=== PATIENT | female | born 1960 | race Caucasian/White ===

== ENCOUNTER → 2016-06-05 | Outpatient (CLI) | payer OTHER ==
[~2016-06-05] MED LIST: BUPR-83
== END | disposition home or self-care (01) ==
LOC: C.PAPS 11:42
PROVIDERS: ATTEND Obstetrics & Gynecology
DX: Z01.419 Encounter for gynecological examination (general) (routine) without abnormal findings (principal)

== ENCOUNTER → 2017-07-20 | Outpatient (CLI) | payer BC ==
[~2017-07-20] MED LIST changes: +ASPCH81X PO; +BUPR100T5 PO; +HYDR25TA4 PO; +IRON PO; +OPTIRAY 320 IV PRN
[2017-07-20 10:22] LABS: ISTAT POTASSIUM 3.7 mEq/L (3.3-5.0); ISTAT SODIUM 138 mEq/L (135-144)
--- NOTE | 2017-07-20 10:45 | DIAGNOSTIC IMAGING REPORT ---
CT ABD/PELVIS COMBO CLINICAL HISTORY: R31.0 Gross hematuria AUTH#[id number] VALID 07/17/17 - 08/[id number] COMPARISON STUDY: None. TECHNIQUE: Unenhanced images were obtained through the abdomen and pelvis. The patient was injected with 50 cc Optiray 320. After 5 minute delay, the patient was reimaged in a dynamic helical fashion during the additional administration of 69 cc Optiray 320. A dose lowering technique was utilized adhering to the principles of ALARA. CT DOSE: 1744.90 mGycm FINDINGS: Lower chest: There are minor dependent atelectatic changes. Liver: The contrast-enhanced liver is normal in size, contour, and attenuation. There is no intrahepatic biliary ductal dilatation. The hepatic veins and portal veins are patent. Gallbladder: Cholelithiasis Spleen: The spleen is the upper limits of normal in size. No masses are visualized Pancreas: Unremarkable. Adrenal glands: There is minor adrenal gland thickening likely secondary to mild hyperplasia Kidneys: There is a 7 mm calculus at the level of the left ureteropelvic junction. There is mild secondary renal pelvic/proximal ureteral wall thickening. No additional calculi are visualized. There is no significant hydronephrosis. No solid there is a 6 mm upper pole left renal cyst. Renal masses are visualized. No collecting system lesions are visualized. No ureteral lesions are delineated. Bowel: There are no transition zones indicate bowel obstruction. No acute inflammatory changes are visualized. Peritoneum: There is no intraperitoneal free air or abdominal ascites. Vasculature: The abdominal aorta is normal in course and caliber. Adenopathy: None. Pelvic viscera: The bladder, and pelvic viscera are unremarkable. No bladder calculi are visualized. Skeletal structures: There is a grade 1 spondylolisthesis of L4 and L5. No destructive lesions are visualized IMPRESSION: 1. 7 mm calculus at the level the left ureteropelvic junction. There is mild secondary uroepithelial thickening. There is no significant hydronephrosis 2. 6 mm left renal cyst 3. No solid renal masses identified 4. Cholelithiasis Electronically signed by: Mamadou Aldana M.D. 07/20/2017 10:43 AM Dictated Date/Time: 07/20/2017 10:39 AM
== END | disposition home or self-care (01) ==
LOC: C.CTS 08:55
PROVIDERS: ATTEND Urology
DX: R31.0 Gross hematuria (principal); N28.1 Cyst of kidney, acquired; K80.20 Calculus of gallbladder without cholecystitis without obstruction

== ENCOUNTER → 2017-07-25 | Outpatient (CLI) | payer BC ==
[~2017-07-25] MED LIST changes: -OPTIRAY 320 IV PRN
--- NOTE | 2017-07-25 16:16 | DIAGNOSTIC IMAGING REPORT ---
TWO VIEW CHEST CLINICAL HISTORY: Preoperative examination. Nephrolithiasis. FINDINGS: PA and lateral chest radiographs are obtained. No prior studies are available for comparison at the time of dictation. The heart is top normal for projection. The mediastinal contour is within normal limits. The lungs and pleural spaces are clear. There is no pneumothorax. The skeletal structures are osteopenic. The bony thorax appears intact. A left proximal ureteral stone is seen in the upper abdomen. IMPRESSION: 1. No active disease in the chest. 2. A left proximal ureteral stone is seen in the upper abdomen. Electronically signed by: Giovanni Saavedra M.D. 07/25/2017 4:15 PM Dictated Date/Time: 07/25/2017 4:13 PM
[2017-07-25 16:45] LABS: BASO % 0.4 %; BASO ABS # 0.03 K/uL (0-0.2); EOS % 1.5 %; EOS ABS # 0.11 K/uL (0-0.5); HEMATOCRIT 39.9 % (37-47); HEMOGLOBIN 13.8 g/dL (12.0-16.0); IG# 0.01 K/uL (0.00-0.02); LYMPH % 26.1 %; MEAN CELL VOLUME 86.9 fL (80-100); MEAN CORPUSCULAR HEMOGLOBIN 30.1 pg (25-34); MEAN CORPUSCULAR HGB CONC 34.6 g/dl (32-36); MEAN PLATELET VOLUME 9.6 fL (7.4-10.4); MONO ABS # 0.58 K/uL (0.11-0.59); NEUT % 63.9 %; NEUT ABS # 4.65 K/uL (1.4-6.5); PLATELET COUNT 213 K/uL (130-400); RED CELL DISTRIBUTION WIDTH CV 13.5 % (11.5-14.5); RED CELL DISTRIBUTION WIDTH SD 42.8 fL (36.4-46.3); WHITE BLOOD COUNT 7.28 K/uL (4.8-10.8)
[2017-07-25 17:05] LABS: BLOOD UREA NITROGEN 14 mg/dl (7-18); CARBON DIOXIDE 30 mmol/L (21-32); CREATININE 0.79 mg/dl (0.60-1.20); POTASSIUM 3.4 mmol/L (3.5-5.1); SODIUM 136 mmol/L (136-145)
== END | disposition home or self-care (01) ==
LOC: C.CPL 15:44
PROVIDERS: ATTEND Nurse Practitioner Adult Health
DX: N20.1 Calculus of ureter (principal)

== ENCOUNTER → 2017-07-25 | Outpatient (CLI) | payer BC ==
--- NOTE | 2017-07-25 11:13 | DIAGNOSTIC IMAGING REPORT ---
KUB CLINICAL HISTORY: Calculus of kidney nephrocalcinosis COMPARISON STUDY: CT dated 07/20/2017 FINDINGS: 7 mm calcification in the left or vertebral line approximately at the level of the superior endplate of L3. This appears to be unchanged in position compared to the patient's prior CT study. Bowel pattern is nonobstructive. IMPRESSION: 7 mm calculus at the left ureteral pelvic junction unchanged in position compared to the patient's prior CT scan. The above report was generated using voice recognition software. It may contain grammatical, syntax or spelling errors. Electronically signed by: José Luis Dwyer M.D. 07/25/2017 11:12 AM Dictated Date/Time: 07/25/2017 11:08 AM
== END | disposition home or self-care (01) ==
LOC: C.RAD 10:53
PROVIDERS: ATTEND Urology
DX: N20.0 Calculus of kidney (principal)

== ENCOUNTER → 2017-08-02 | Outpatient (CLI) | payer BC ==
[~2017-08-02] MED LIST changes: -BUPR-83; +NITR1CAP33 PO; +OXYC-57 PO
--- NOTE | 2017-08-02 19:11 | DIAGNOSTIC IMAGING REPORT ---
KUB CLINICAL HISTORY: Nephrolithiasis. Ureteral stone. FINDINGS: An AP supine abdominal radiograph is compared to study dated 07/25/2017 and correlated with abdominal CT dated 07/20/2017. There is a nonobstructed abdominal bowel gas pattern noting moderate colonic fecal retention. A 10 mm calculus is again seen projecting over the left proximal ureter above the L3 transverse process. No additional calcifications are clearly seen projecting over either kidney or along the course of ureters. The bony structures appear intact. IMPRESSION: 1. A 10 mm proximal left ureteral calculus is unchanged from previous. 2. No additional renal calculi are identified. Electronically signed by: Giovanni Saavedra M.D. 08/02/2017 7:09 PM Dictated Date/Time: 08/02/2017 7:07 PM
== END | disposition home or self-care (01) ==
LOC: C.RAD 17:34
PROVIDERS: ATTEND Nurse Practitioner Adult Health
DX: N20.1 Calculus of ureter (principal)

== ENCOUNTER → 2017-08-03 | Day surgery (SDC) | payer BC ==
[2017-07-27 11:43] VITALS: Ht 154.9 cm; Wt 75.0 kg
[~2017-08-03] VITALS: Ht 154.9 cm; Wt 75.0 kg
[~2017-08-03] MED LIST changes: +ATROPINE SULFATE 0.1 MG/ML 5ML SYR IV PRN; +CIPROFLOXACIN 400MG / D5W IV SCH; +DEXAMETHASONE SOD INJ 4 MG/ML VIAL ONE; +EpHEDrine SULFATE INJ 50 MG/ML AMP IV PRN; +FENTANYL CITRATE INJ 50 MCG/1 ML 2 ML VIAL IV PRN; +FENTANYL CITRATE INJ 50 MCG/1 ML 2 ML VIAL ONE; +LABETALOL HCL IV 5 MG/ML 20ML IV ONE; +LABETALOL HCL IV 5 MG/ML 20ML IV STA; +LACTATED RINGER'S 1000ML 1,000 ML IV SCH; +LIDOCAINE HCL 2% 2 ML VIAL (20MG/ML) ONE; +MIDAZOLAM HCL 1 MG/ML 2ML VIAL ONE; +ONDANSETRON INJ 2 MG/ML 2 ML VIAL IV PRN; +ONDANSETRON INJ 2 MG/ML 2 ML VIAL ONE; +OXYCODONE/ACETAMINOPHEN 5-325 TAB ONE; +OXYCODONE/ACETAMINOPHEN 5-325 TAB PO STA; +PROMETHAZINE HCL INJ 12.5 MG in SODIUM CHLORIDE 0.9% 50ML 50 ML IV PRN; +PROMETHAZINE HCL INJ 25 MG/ML 1 ML VIAL ONE; +PROPOFOL IV EMULSION 10 MG/ML 20 ML VIAL IV ONE
--- NOTE | 2017-08-03 07:09 | History & Physical Bridge - SC ---
H&P Re-Evaluation Bridge Note: I have examined the patient, reviewed the History & Physical and in the interval since the performance of the History & Physical I have noted the following changes of clinical significance: No changes noted
--- NOTE | 2017-08-03 07:47 | Discharge Instructions-SurgCtr ---
Discharge Instructions Date of Service Aug 03, 2017. Visit Reason for Visit: Ureteral Stone Discharge Discharge Diagnosis / Problem: post op eswl Discharge Goals Goal(s): Decrease discomfort, Increase independence, Improve disease control Medications Stopped Medications Name(s): ASA see note below Activity Recommendations Activity Limitations: resume your previous activity Anesthesia . Post Anesthesia Instructions: If you have had General Anesthesia or IV Sedation: * Do not drive today. * Resume driving when surgeon permits. * Do not make important decisions or sign legal documents today. * Call surgeon for: 1. Temperature elevations greater than 101 degrees F. 2. Uncontrollable pain. 3. Excessive bleeding. 4. Persistent nausea and vomiting. 5. Medication intolerance (nausea, vomiting or rash). * For nausea and vomiting use only clear liquids such as: tea, soda, bouillon until nausea subsides, then gradually increase diet as tolerated. * If you have any concerns or questions, call your surgeon's office. If physician is unavailable and it is an emergency, call 911 or go to the nearest emergency room. . Diet Recommendations Home Diet: resume previous diet Procedures Procedures Performed: Left Extracorporeal Shock Wave Lithotripsy Pending Studies Studies pending at discharge: no Medical Emergencies . Who to Call and When: Medical Emergencies: If at any time you feel your situation is an emergency, please call 911 immediately. . Non-Emergent Contact Non-Emergency issues call your: Urologist Call Non-Emergent contact if: temperature is above 101 . . "Provider Documentation" section prepared by Alvin Koehler. .
--- NOTE | 2017-08-03 07:50 | [facility] Post Operative Brief Note ---
Immediate Operative Summary Operative Date Aug 03, 2017. Pre-Operative Diagnosis Left Ureteral Calculi Post-Operative Diagnosis Same Procedure(s) Performed Left Extracorporeal Shock Wave Lithotripsy Surgeon Dr. Blanca Koehler Waistline Joiner Lockstitch Surgeon(s) None Estimated Blood Loss 0 Findings Consistent with Post-Op Diagnosis Specimens None Anesthesia Type General
--- NOTE | 2017-08-03 09:36 | Anesthesia Progress Nt - [facility] ---
Anesthesia Post Op Note Date & Time Aug 03, 2017 at 09:35 Vital Signs Pain Intensity: 4.0 Vital Signs Past 12 Hours Date Time Temp Pulse Resp B/P (MAP) Pulse Ox O2 Delivery O2 Flow Rate FiO2 08/03/17 09:19 65 16 157/85 (109) 98 Room Air 08/03/17 08:56 151/87 08/03/17 08:55 36.4 66 16 151/87 94 Room Air 08/03/17 08:53 57 12 08/03/17 08:53 59 12 97 08/03/17 08:52 56 14 98 08/03/17 08:52 56 14 08/03/17 08:51 153/83 08/03/17 08:47 56 12 08/03/17 08:47 53 12 99 08/03/17 08:46 137/79 08/03/17 08:42 54 10 08/03/17 08:42 53 10 98 08/03/17 08:41 129/80 08/03/17 08:37 60 16 95 08/03/17 08:37 60 16 08/03/17 08:36 156/94 08/03/17 08:34 163/96 08/03/17 08:32 69 19 08/03/17 08:32 71 19 96 08/03/17 08:27 65 15 08/03/17 08:27 65 15 93 08/03/17 08:26 168/92 08/03/17 08:25 168/119 08/03/17 08:23 36.7 68 12 168/92 96 Room Air 08/03/17 08:23 68 13 08/03/17 08:23 68 13 95 08/03/17 08:21 150/106 08/03/17 08:18 62 14 99 08/03/17 08:18 62 14 08/03/17 08:16 146/76 08/03/17 08:13 64 13 08/03/17 08:13 64 13 96 08/03/17 08:11 145/85 08/03/17 08:08 62 14 99 08/03/17 08:08 63 14 08/03/17 08:07 62 12 99 08/03/17 08:07 62 12 08/03/17 08:06 134/79 08/03/17 08:02 65 12 08/03/17 08:02 65 12 98 08/03/17 07:57 65 14 124/84 99 08/03/17 07:57 64 14 08/03/17 07:54 135/90 08/03/17 07:52 36.6 64 12 135/90 96 Diffusion Mask 6 08/03/17 07:52 60 08/03/17 07:52 60 96 08/03/17 06:31 36.3 82 18 147/87 (107) 95 Room Air Notes Mental Status: alert / awake / arousable, participated in evaluation Pt Amnestic to Procedure: Yes Nausea / Vomiting: adequately controlled Pain: adequately controlled Airway Patency, RR, SpO2: stable & adequate BP & HR: stable & adequate Hydration State: stable & adequate Anesthetic Complications: no major complications apparent
[2017-08-03 09:49] VITALS: TEMP 36.2
--- NOTE | 2017-08-03 10:44 | OPERATIVE REPORT ---
DATE OF OPERATION: 08/03/2017 PROCEDURE PERFORMED: Left renal ESWL. INDICATIONS: The patient is a 57-year-old female with a left renal stone, here for lithotripsy. DESCRIPTION OF THE PROCEDURE: She was taken to the ____ operating room where general anesthesia was administered. She had Venodyne stockings placed prior to this and she had been given antibiotics. She was given general anesthesia in the supine position. The stone was visualized in 2 views and she received 2500 shocks, the highest at level 5. The stone did appear to fragment, but it was not clear how small the fragments were. She was transferred to the recovery room in stable condition. I attest to the content of the Intraoperative Record and any orders documented therein. Any exceptions are noted below. MAURO
[2017-08-03 11:04] VITALS: BP 161/85; PULSE 62; O2SAT 99
== END | disposition home or self-care (01) ==
LOC: X.SURG 06:26
PROVIDERS: ATTEND Urology
DX: N20.1 Calculus of ureter (principal); I10 Essential (primary) hypertension; E11.9 Type 2 diabetes mellitus without complications; M19.90 Unspecified osteoarthritis, unspecified site; F32.9 Major depressive disorder, single episode, unspecified; E78.00 Pure hypercholesterolemia, unspecified; Z79.82 Long term (current) use of aspirin; Z83.3 Family history of diabetes mellitus; Z82.49 Family history of ischemic heart disease and other diseases of the circulatory system; Z80.3 Family history of malignant neoplasm of breast

== ENCOUNTER → 2017-08-20 | Outpatient (CLI) | payer BC ==
[~2017-08-20] MED LIST changes: -ATROPINE SULFATE 0.1 MG/ML 5ML SYR IV PRN; -CIPROFLOXACIN 400MG / D5W IV SCH; -DEXAMETHASONE SOD INJ 4 MG/ML VIAL ONE; -EpHEDrine SULFATE INJ 50 MG/ML AMP IV PRN; -FENTANYL CITRATE INJ 50 MCG/1 ML 2 ML VIAL IV PRN; -FENTANYL CITRATE INJ 50 MCG/1 ML 2 ML VIAL ONE; -LABETALOL HCL IV 5 MG/ML 20ML IV ONE; -LABETALOL HCL IV 5 MG/ML 20ML IV STA; -LACTATED RINGER'S 1000ML 1,000 ML IV SCH; -LIDOCAINE HCL 2% 2 ML VIAL (20MG/ML) ONE; -MIDAZOLAM HCL 1 MG/ML 2ML VIAL ONE; -ONDANSETRON INJ 2 MG/ML 2 ML VIAL IV PRN; -ONDANSETRON INJ 2 MG/ML 2 ML VIAL ONE; -OXYCODONE/ACETAMINOPHEN 5-325 TAB ONE; -OXYCODONE/ACETAMINOPHEN 5-325 TAB PO STA; -PROMETHAZINE HCL INJ 12.5 MG in SODIUM CHLORIDE 0.9% 50ML 50 ML IV PRN; -PROMETHAZINE HCL INJ 25 MG/ML 1 ML VIAL ONE; -PROPOFOL IV EMULSION 10 MG/ML 20 ML VIAL IV ONE
--- NOTE | 2017-08-20 09:26 | DIAGNOSTIC IMAGING REPORT ---
KUB CLINICAL HISTORY: 57 years-old Female presenting with N20.1 Ureteral stone. TECHNIQUE: Single supine view of the abdomen was obtained. COMPARISON: 08/02/[address] from 07/20/2017. FINDINGS: Moderate stool burden throughout the colon. Paucity of small bowel gas, nonspecific. Beatrice lobe configuration of the liver. Allowing for bowel gas and stool, the previously noted proximal left ureteral calculus is no longer visualized. However, a faint calcification projects over the distal left ureter but is far smaller than the prior calculus. This may indicate interval fragmentation. No phlebolith was noted in this region on prior radiographs. Osseous structures normal. Lung bases clear. IMPRESSION: 1. Previously noted proximal left ureteral calculus is no longer visualized though a smaller calculus may be present in the distal left ureter. This may indicate interval fragmentation and passage of the majority of the calculus. No additional renal calculus is radiographically evident. 2. Constipation. Electronically signed by: Juan Carter M.D. 08/20/2017 9:25 AM Dictated Date/Time: 08/20/2017 9:21 AM
== END | disposition home or self-care (01) ==
LOC: C.RAD 09:00
PROVIDERS: ATTEND Nurse Practitioner Adult Health
DX: N20.1 Calculus of ureter (principal); K59.00 Constipation, unspecified

== ENCOUNTER → 2017-08-20 | Outpatient (CLI) | payer BC | END | disposition home or self-care (01) | LOC: C.LABSPEC 17:26 | PROVIDERS: ATTEND Urology | DX: N20.0 Calculus of kidney (principal) ==

== ENCOUNTER 2019-04-21 06:00 | Observation (INO) ==
--- NOTE | 2019-04-14 10:12 | PAT Medication Instructions ---
Medication Instructions Date of Service April 14, 2019 Home Medications aspirin 81 mg chewable tablet 81 mg PO DAILY bupropion HCl 150 mg tablet,12 hr sustained-release 150 mg PO BID hydrochlorothiazide 50 mg tablet 50 mg PO QAM metformin 500 mg tablet 500 mg PO BID rosuvastatin 10 mg tablet 10 mg PO QAM cholecalciferol (vitamin D3) [Vitamin D3] 2,000 unit PO DAILY multivitamin 1 cap PO DAILY ASK your prescriber and surgeon aspirin 81 mg chewable tablet 81 mg PO DAILY DO NOT take the morning of surgery hydrochlorothiazide 50 mg tablet 50 mg PO QAM metformin 500 mg tablet 500 mg PO BID cholecalciferol (vitamin D3) [Vitamin D3] 2,000 unit PO DAILY multivitamin 1 cap PO DAILY Take morning of surgery With a small sip of water, OTHERWISE NOTHING TO EAT OR DRINK AFTER MIDNIGHT: bupropion HCl 150 mg tablet,12 hr sustained-release 150 mg PO BID rosuvastatin 10 mg tablet 10 mg PO QAM Take evening before surgery bupropion HCl 150 mg tablet,12 hr sustained-release 150 mg PO BID metformin 500 mg tablet 500 mg PO BID Other Notes If you have any questions please call us at [phone] or [phone] or [phone] or [phone]
--- NOTE | 2019-04-15 11:02 | Anesthesiology Consultation ---
Date of Service April 15, 2019 Assessment & Plan (1) Encounter for pre-operative examination: - Check BSG AM DOS Chart Review Chart Review: Acceptable Risk for Surgery and Patient seen in Pre Admission Testing Teaching & Discussion Pre-Anesthesia Teaching/Discussion Notes: Instructed NPO after midnight before surgery,except medications with 15 cc of water. Medication instructions provided according to the PAT guidelines. History Surgery Operation Date: 04/21/19 07:30 Proposed Procedures p Bilateral Panniculectomy - Xochilt Smith MD Height/Weight Height: 5 ft 1 in Weight: 73.9 kg Allergies Allergy/AdvReac Type Severity Reaction Status Date / Time No Known Allergies Allergy Mild Unverified 04/10/19 15:33 Medications Home Medications Medication Instructions Recorded Confirmed Last Taken aspirin 81 mg chewable tablet 81 mg PO DAILY tab 01/30/19 04/10/19 04/08/19 bupropion HCl 150 mg tablet,12 hr 150 mg PO BID ea 01/30/19 04/10/19 04/10/19 sustained-release hydrochlorothiazide 50 mg tablet 50 mg PO QAM 01/30/19 04/10/19 04/10/19 metformin 500 mg tablet 500 mg PO BID #180 tab 01/30/19 04/10/19 04/10/19 rosuvastatin 10 mg tablet 10 mg PO QAM #90 tab 01/30/19 04/10/19 04/10/19 cholecalciferol (vitamin D3) 2,000 unit PO DAILY 04/10/19 04/10/19 Unknown [Vitamin D3] multivitamin 1 cap PO DAILY 04/10/19 04/10/19 Unknown Past Medical History Medical History Back problem bulging disc Depression Diabetes (Chronic) NIDDM History of blood transfusion s/p ORIF surgery History of high cholesterol History of kidney stones HTN (hypertension) (Chronic) Obesity Exercise / Class Metabolic Activity II 4-5 Yardwork/Stairs/Walk up hill Past Family History Family History Father Family history of diabetes mellitus Past Surgical History Surgical History History of 2 sections History of colonoscopy History of open reduction and internal fixation (ORIF) procedure L FEMUR History of toe surgery HAMMER TOE Hx of lithotripsy (Resolved) Left ESWL: 08/03/17: LMA#4 unique at [facility] [place] Past Anesthesia History No Hx of Anesthesia Complications (except PONV) and No Family Hx of Anesthesia Complications History of PONV History of PONV and Hx of Motion Sickness (occasional) Social History Smoking Status: Never smoker Do You Dip or Chew Tobacco: No Hx Alcohol Use: Yes Alcohol type: wine alcohol intake frequency: a few times a month Hx Substance Use: No substance use type: does not use Review of Systems Patient denies chest pain, shortness of breath, dyspnea on exertion, reflux, cough, wheezing, palpitations. Physical Exam Vital Signs VITALS BP 141/84 P 77 TEMP 98.5 SP02 100%RA RESP 16 PHYSICAL Full neck and c-spine range of motion. Full TMJ range of motion. TMD 3.5 finger breaths Mallampati Score 2 Dentition: intact, crowns on molars Lungs: clear throughout to auscultation Cardiac: regular rate and rhythm, no murmurs noted Spine: normal Carotid arteries: negative bruit Extremities: no edema Testing Laboratory Results 04/15/19 11:30 04/15/19 11:30 PT 9.8 Seconds (9.0-12.0) 04/15/19 11:30 INR 1.0 (0.9-1.1) 04/15/19 11:30 APTT 26.8 Seconds (21.0-31.0) 04/15/19 11:30 Hemoglobin A1c 6.8 % (4.5-5.6) H 04/15/19 11:30 Electrocardiogram Date: 04/15/19 NSR at 75bpm. Normal ECG. *unconfirmed EKG*
[2019-04-15 14:05] LABS: BUN Creatinine Ratio 27.3 (10-20); Calcium 9.8 mg/dl (8.5-10.1); Creatinine Clr Calc Pharmacy 69.6 ml/min; Est GFR (African American) 93.5; Est GFR (Non-African American) 80.7; Potassium 3.5 mmol/L (3.5-5.1)
[2019-04-15 14:06] LABS: Partial Thromboplastin Time 26.8 Seconds (21.0-31.0); Prothrombin Time 9.8 Seconds (9.0-12.0)
[2019-04-15 14:34] LABS: Basophils # (auto) 0.02 K/uL (0-0.2); Basophils % (auto) 0.4 %; Eosinophils # (auto) 0.31 K/uL (0-0.5); Eosinophils % (auto) 5.8 %; Hematocrit (blood only) 37.5 % (37-47); Hemoglobin 12.7 g/dL (12.0-16.0); Immature Granulocytes # (auto) 0.01 K/uL (0.00-0.02); Immature Granulocytes % (auto) 0.2 %; Lymphocytes # (auto) 1.23 K/uL (1.2-3.4); Mean Corpuscular Hemoglobin 30.8 pg (25-34); Mean Corpuscular Hgb Conc 33.9 g/dL (32-36); Mean Corpuscular Volume 90.8 fL (80-100); Mean Platelet Volume 9.8 fL (7.4-10.4); Monocytes # (auto) 0.62 K/uL (0.11-0.59); Monocytes % (auto) 11.6 %; Neutrophils # (auto) 3.16 K/uL (1.4-6.5); Platelet Count 173 K/uL (130-400); RDW Coefficient of Variation 13.8 % (11.5-14.5); RDW Standard Deviation 45.9 fL (36.4-46.3); Red Blood Count 4.13 M/uL (4.2-5.4); White Blood Count 5.35 K/uL (4.8-10.8)
[2019-04-15 15:13] LABS: Estimated Average Glucose 148 mg/dl; Hemoglobin A1C 6.8 % (4.5-5.6)
[~2019-04-21 06:00] MED LIST changes: -ASPCH81X PO; -BUPR100T5 PO; +CEFAZOLIN 2000MG 2,000 MG/15 ML SYR IV SCH; -HYDR25TA4 PO; -IRON PO; +LR 15ML/HR IV SCH; -NITR1CAP33 PO; -OXYC-57 PO
[2019-04-21] MEDS ORDERED: ONDANSETRON INJ 2 MG/ML 2 ML VIAL ONE (06:56)
[2019-04-21] MEDS ORDERED: GLYCOPYRROLATE 0.2 MG/ML VIAL ONE ×2 (06:56→09:47)
[2019-04-21] MEDS ORDERED: NEOSTIGMINE METHYLSULFATE 5 MG/5 ML SYR ONE (06:56)
[2019-04-21] MEDS ORDERED: LIDOCAINE HCL 2% 2 ML VIAL/AMP(20MG/ML) INFIL ONE (06:56)
[2019-04-21] MEDS ORDERED: fentaNYL citrate 100 MCG/2 ML VIAL ONE (06:57)
[2019-04-21] MEDS ORDERED: HYDROmorphone INJ 2 MG/ML SYR/VIAL ONE (06:57)
[2019-04-21] MEDS ORDERED: LIDOCAINE HCL 1% 20 ML VIAL ONE (06:57)
[2019-04-21] MEDS ORDERED: MIDAZOLAM HCL 1 MG/ML 2ML VIAL ONE (06:57)
[2019-04-21] MEDS ORDERED: LIDOCAINE/EPINEPHRINE 1% 20 ML VIAL ONE (06:58)
[2019-04-21] MEDS ORDERED: EpINEphrine HCL INJ 1 MG/ML 1ML SYRINGE ONE (06:58)
[2019-04-21] MEDS ORDERED: BUPIVACAINE 0.25% 30 ML VIAL ONE (06:58)
[2019-04-21] MEDS ORDERED: HYDROmorphone INJ 1 MG/ML SYRINGE IV PRN (07:01)
[2019-04-21] MEDS ORDERED: MEPERIDINE HCL 25 MG/ML CARP IV PRN (07:01)
[2019-04-21] MEDS ORDERED: fentaNYL citrate 100 MCG/2 ML VIAL IV PRN (07:01)
[2019-04-21] MEDS ORDERED: ONDANSETRON INJ 2 MG/ML 2 ML VIAL IV PRN ×2 (07:01→11:11)
[2019-04-21] MEDS ORDERED: LABETALOL HCL IV 5 MG/ML 20ML IV PRN (07:01)
[2019-04-21] MEDS ORDERED: PHENYLEPHRINE 100MCG/ML 5ML SYR IV PRN (07:01)
[2019-04-21] MEDS ORDERED: ePHEDrine sulfate 50 MG/ML AMP IV PRN (07:01)
[2019-04-21] MEDS ORDERED: ATROPINE SULFATE 0.1 MG/ML 10ML SYR IV PRN (07:01)
[2019-04-21] MEDS ORDERED: SCOPOLAMINE 1.5 MG TDSY TD ONE (07:02)
--- NOTE | 2019-04-21 07:02 | History & Physical Bridge Note ---
Date of Service April 21, 2019 History & Physical Bridge Note I have examined the patient, reviewed the History & Physical and in the interval since the performance of the History & Physical I have noted the following changes of clinical significance: Inflamed pimple on abdomen. Still ok to proceed
[2019-04-21] MEDS ORDERED: SCOPOLAMINE 1.5 MG TDSY ONE (07:12)
[2019-04-21] MEDS ORDERED: ROCURONIUM BROMIDE 10 MG/ML 5 ML VIAL ONE (08:53)
[2019-04-21] MEDS ORDERED: ACETAMINOPHEN 1000 MG/100 ML IV IV ONE (09:43)
--- NOTE | 2019-04-21 09:51 | Post Operative Brief Note ---
Immediate Post Op Note v1 Date of Surgery April 21, 2019 Pre & Post Diagnosis Operation Date: 04/21/19 07:30 Pre-Op Diagnosis: Abdominal Pannus Post-Op Diagnosis: Abdominal Pannus I identified the patient and participated in the time-out.: Yes Procedure Operation Date: 04/21/19 07:30 Actual Procedures p Panniculectomy(Not Applicable) - Xochilt Smith MD Surgeon Xochilt Smith MD Sizing Sponger Patricia Berry PA-C Estimated Blood Loss 20 Findings Consistent with Post-Op Diagnosis Drains Laguna Catheter and Paramjit-Soares Drain (15fr, 100cc bulb; bilateral pubis) Anesthesia Type General Complications none Disposition Disposition: Recovery Room
--- NOTE | 2019-04-21 10:16 | Operative Report ---
PG Post Operative Report Pre & Post Diagnosis Operation Date: 04/21/19 07:30 Pre-Op Diagnosis: Abdominal Pannus Post-Op Diagnosis: Abdominal Pannus I identified the patient and participated in the time-out.: Yes Procedure Operation Date: 04/21/19 07:30 Actual Procedures p Panniculectomy(Not Applicable) - Xochilt Smith MD Surgeon Xochilt Smith MD Curbing Stonecutter Patricia Berry PA-C Estimated Blood Loss 20 Findings Consistent with Post-Op Diagnosis Specimens pannus to pathology Drains JPx2 Anesthesia Type General Complications none Disposition Disposition: Recovery Room Description of Procedure Risks, benefits, and alternatives of the procedure were explained to the patient who agreed and signed consent. She was identified and marked in the preoperative holding area. She was brought to the operating room where she was positioned supine and placed under general anesthesia without incident. Laguna catheter was placed. Surgical site was prepped and draped sterilely. A time-out procedure was performed. A small inflamed pimple was noted near the surgical site and was prepped, unroofed, prepped again and separately covered with a tegaderm to isolate it from the pl anned incisions. I reassessed my markings which included a lower horizontal abdominal incision with the midportion 7 cm above the vulvar commissure. Incision was marked bilaterally to the ASIS. I began by injecting 1% lidocaine with epinephrine along the planned incision. The lower abdominal incision was made using a 15- blade scalpel to incise epidermis and superficial dermis followed by electr ocautery to incise deep dermis, subcutaneous fat, Deepak's fascia down to the abdominal wall. Care was taken to bevel superiorly in order to avoid encountering the inguinal region. Electrocautery was used to elevate theanterior abdominal skin flap ligating the perforating vessels with 3-0 Vicryl ties and electrocautery. Dissection was carried up to the level of the umbilicus in the midline. At this point, a 15-blade scalpel was used to circumscribe the umbilicus. A vertical midline incision was then made from the incision to the umbilicus and divided in the midline using electrocautery. The umbilicus was then dissected out using electrocautery down to abdominal wall. The umbilical stalk appeared viable throughout the procedure. In order to facilitate inset of the umbilicus, dissection was continued for about an additional 6 cm superior to the umbilicus. At this point, the bed was flexed and the mid portion of the superior skin flap was inset above the mons pubis using 2-0 Vicryl suture. Skin flaps were marked for excision. A 15-blade scalpel was used to make these incisions and the incision was deepened through dermis, subcutaneous fat, Deepak's fat using electrocautery. Subscarpal fat was resected directly. A 15 Frisian Jasmeet drains were placed in the wound bed and brought out through a separate stab incision in the mons pubis. The drains were sutured into place using 3-0 nylon. The umbilicus was brought out through an inverted triangular incision in the abdominal wall. Wound closure was then begun lateral to medial using 2-0 Vicryl Deepak's fascia sutures, 2-0 Vicryl deep dermal sutures, 2-0 PDO running superficial Quill suture, 3-0 Monocryl running subcuticular suture. Umbilicus was brought out through the inverted triangle incision and was sutured into place using 4-0 chromic half buried horizontal mattress sutures. The umbilicus was dressed using Xeroform and the incision was dressed using Dermabond Prineo followed by dry dressings and an abdominal binder. Prior to closure, a total of 10 mL of 0.25% Marcaine plain were injected into the fascia as well as along the incisions. The procedure was tolerated well. The patient was awakened and transferred to recovery in satisfactory condition. Patricia Berry was present and scrubbed throughout the entire procedure and was instrumental in providing retraction of the pannus and assisting in simultaneous wound closure. I attest to the content of the Intraoperative Record and any orders documented therein. Any exceptions are noted below.
--- NOTE | 2019-04-21 10:55 | Anesthesiology Progress Note ---
Date of Service April 21, 2019 Anesthesia Post Procedure Vital Signs Vital Signs: Temp Pulse Resp BP Pulse Ox 04/21/19 10:40 36.6 C 87 16 138/76 98 04/21/19 10:30 36.3 C L 81 13 128/68 94 04/21/19 10:20 36.3 C L 86 13 143/75 H 97 04/21/19 10:10 36.3 C L 93 H 14 146/79 H 97 04/21/19 10:03 36.3 C L 90 14 158/83 H 98 04/21/19 06:26 37.1 C 90 18 139/79 96 Transfer of Care Handoff Completed per policy Notes Mental Status: alert / awake / arousable Patient Amnestic to Procedure: Yes Nausea / Vomiting: adequately controlled Pain: adequately controlled Airway Patency, RR, SpO2: stable & adequate BP & HR: stable & adequate Hydration State: stable & adequate Anesthetic Complications: no major complications apparent and Pt Satisfied with anesthetic care
[2019-04-21] MEDS ORDERED: MoRPHine SULFATE 2 MG/ML CARP IV PRN (11:11)
[2019-04-21] MEDS ORDERED: MoRPHine SULFATE 4 MG/ML 1 ML CARP\\VIAL IV PRN ×2 (11:11)
[2019-04-21] MEDS ORDERED: LORazepam 0.5 MG TAB PO PRN (11:11)
[2019-04-21] MEDS ORDERED: D5W AND 1/2NSS 1,000 ML IV SCH (11:11)
[2019-04-21] MEDS ORDERED: DiphenhydrAMINE HCL 50 MG/ML VIAL IV PRN (11:11)
[2019-04-21] MEDS ORDERED: PROMETHAZINE HCL 12.5 MG in SODIUM CHLORIDE 0.9% 50 ML IV PRN (11:11)
[2019-04-21] MEDS ORDERED: OXYCODONE/ACETAMINOPHEN 5mg/325mg TAB PO PRN ×2 (11:11)
[2019-04-21] MEDS: CHECK SCOPOLAMINE PATCH PLACEMENT SCH ×3 (11:16→23:53)
[2019-04-21] MEDS ORDERED: PHARMACY GLYCEMIC MGMT CONSULT PRN (11:40)
[2019-04-21] MEDS ORDERED: DEXTROSE 50% 50 ML SYRINGE IV PRN (12:00)
[2019-04-21] MEDS ORDERED: GLUCOSE 10 TABS/TUBE PO PRN (12:00)
[2019-04-21] MEDS ORDERED: GLUCAGON FOR INJ 1 MG VIAL IM PRN (12:00)
[2019-04-21] MEDS ORDERED: CARBOHYDRATES FOR HYPOGLYCEMIA PO PRN (12:00)
[2019-04-21] MEDS ORDERED: GLUCOSE 40% GEL 15 GM TUBE PO PRN (12:00)
--- NOTE | 2019-04-21 13:19 | Pharmacy Report ---
Glycemic Control Consultation - Date of Service April 21, 2019 - Scope Scope: Glycemic Pharmacist consulted by Patricai Berry PA-C on 04/21/19 for glycemic control and to write orders per [facility] inpatient glycemic control protocol - Objective Weight: 73.028 kg Accuchecks BSG (last 24hrs): 04/21/19 04/21/19 06:21 10:07 POC Glucose 138 H 162 H HbA1c: Hemoglobin A1c 6.8 % (4.5-5.6) H 04/15/19 11:30 - Recent Pertinent Medications Outpatient Anti-diabetic Regimen: * Metformin 500 mg PO BIDM * A1c = 6.8 % (04/15/19) Risk Factors for Insulin Resistance: * Recent Surgery: POD #0 s/p panniculectomy * Diet: T2DM - Assessment & Plan Assessment & Plan: ASSESSMENT: * ANTHONY is a 58 year old female POD #0 s/p panniculectomy * Patient is well controlled as an outpatient on metformin twice daily, as demonstrated by A1c of 6.8% * BSGs so far this morning were 138 mg/dL and 162 mg/dL * IV fluids (D5W+1/2 NS) currently running at 75 mL/hr PLAN FOR INPATIENT GLYCEMIC CONTROL: * Holding outpatient oral diabetes medications * Basal insulin * Lantus scale for this evening * -0 units - bsg 140 mg/dL or below * -7 units - bsg 141-179 mg/dL * -12 units - bsg 180 mg/dL or above * Bolus insulin * NovoLog per scale ACHS or Q6hrs while NPO * Goal Range: Low 110 mg/dL - High 150 mg/dL * Correction Factor: 30 mg/dL/unit * Nutritional / Prandial insulin per carb ratio of 1 unit per 11 grams CHO consumed * Overnight checks at 00,04 with same parameters * Please note that the plan above was derived based on current level of insulin resistance and hospital stress. These recommendations are appropriate for inpati ent admission only. Plan of care upon discharge will need to be reassessed to avoid potential outpatient hypo/hyperglycemia. Thank you.
[2019-04-21] MEDS: INSULIN ASPART 100 UNITS/ML 3 ML PEN SC SCH ×4 (13:32→23:59)
[2019-04-21] MEDS: CEFAZOLIN 2000MG 2,000 MG/15 ML SYR IV SCH ×2 (14:19→23:48)
--- NOTE | 2019-04-21 16:59 | Surgery Progress Note ---
Date of Service April 21, 2019 Assessment & Plan (1) S/P panniculectomy: Patient is several hours status post Panniculectomy. She is doing well. Pain is controlled. Mild nausea following surgery has resolved. Tolerating regular diet- as expected, she is not very hungry. Catheter in place. We discussed that I will be in to see her in the morning for possible discharge. All questions answered. Ralph Lopez is doing well- resting in bed as I entered the room. She reports that her pain is well-controlled. She does report some nausea following surgery, but that has resolved. She tolerated regular diet at lunch. Physical Exam Physical Exam: On physical exam- Pt's HOB elevated, weinberg catheter in place, surgical binder in place, RICO drains x [address] with bloody drainage. Results & Data Vital Signs (Past 12 Hours) Vital Signs Temp Pulse Resp BP Pulse Ox 04/21/19 15:08 36.7 C 81 18 120/71 95 04/21/19 14:09 36.7 C 86 16 134/73 94 04/21/19 13:16 90 16 132/76 94 04/21/19 12:20 79 16 126/76 94 04/21/19 11:51 87 18 121/72 95 04/21/19 11:26 36.6 C 84 15 126/73 94 04/21/19 10:50 36.6 C 80 16 127/67 95 04/21/19 10:40 36.6 C 87 16 138/76 98 04/21/19 10:30 36.3 C L 81 13 128/68 94 04/21/19 10:20 36.3 C L 86 13 143/75 H 97 04/21/19 10:10 36.3 C L 93 H 14 146/79 H 97 04/21/19 10:03 36.3 C L 90 14 158/83 H 98 04/21/19 06:26 37.1 C 90 18 139/79 96 PG Care Time/CCT Total # of Minutes Spent Total Time Spent with Patient: Total time spent is greater than 50% in coordination of care (as documented) at patient's floor/unit and/or counseling patient:
[2019-04-21] MEDS ORDERED: LANTUS PER UNIT CHARGE SQ ONE (21:00)
[2019-04-21] MEDS ORDERED: LANTUS PER UNIT CHARGE SQ SCH (21:00)
[2019-04-21] MEDS: BuPROPion SR 150 MG TABCR PO SCH (21:38)
[2019-04-21] MEDS: ACETAMINOPHEN 325 MG TAB PO PRN (21:50)
[2019-04-22] MEDS: INSULIN ASPART 100 UNITS/ML 3 ML PEN SC SCH ×2 (04:08→08:45)
[2019-04-22] MEDS: ACETAMINOPHEN 325 MG TAB PO PRN (07:07)
[2019-04-22] MEDS: BuPROPion SR 150 MG TABCR PO SCH (08:10)
[2019-04-22] MEDS: CHECK SCOPOLAMINE PATCH PLACEMENT SCH (08:11)
--- NOTE | 2019-04-22 08:15 | Anesthesiology Progress Note ---
Date of Service April 22, 2019 Anesthesia Post Procedure Vital Signs Vital Signs: Temp Pulse Resp BP Pulse Ox 04/22/19 07:33 36.8 C 77 16 112/70 93 04/22/19 03:58 36.8 C 78 16 100/62 93 04/21/19 22:55 36.7 C 92 H 18 108/68 94 04/21/19 21:19 36.9 C 91 H 18 104/67 92 04/21/19 15:08 36.7 C 81 18 120/71 95 04/21/19 14:09 36.7 C 86 16 134/73 94 04/21/19 13:16 90 16 132/76 94 04/21/19 12:20 79 16 126/76 94 04/21/19 11:51 87 18 121/72 95 04/21/19 11:26 36.6 C 84 15 126/73 94 04/21/19 10:50 36.6 C 80 16 127/67 95 04/21/19 10:40 36.6 C 87 16 138/76 98 04/21/19 10:30 36.3 C L 81 13 128/68 94 04/21/19 10:20 36.3 C L 86 13 143/75 H 97 04/21/19 10:10 36.3 C L 93 H 14 146/79 H 97 04/21/19 10:03 36.3 C L 90 14 158/83 H 98 Pain Intensity Lower Abdomen: Pain Intensity: 6 Notes Mental Status: alert / awake / arousable and participated in evaluation Patient Amnestic to Procedure: Yes Nausea / Vomiting: adequately controlled Pain: adequately controlled Airway Patency, RR, SpO2: stable & adequate BP & HR: stable & adequate Hydration State: stable & adequate Anesthetic Complications: no major complications apparent and Pt Satisfied with anesthetic care
[2019-04-22] MEDS ORDERED: hydroCHLOROthiazide 25 MG TAB PO SCH (09:00)
[2019-04-22] MEDS ORDERED: NON-FORMULARY MEDICATION (Multivitamin 1 CAP) PO SCH (09:00)
[2019-04-22] MEDS ORDERED: CHOLECALCIFEROL 1,000 UNITS TAB PO SCH (09:00)
[2019-04-22] MEDS ORDERED: ROSUVASTATIN CALCIUM 10 MG TAB PO SCH (09:00)
[2019-04-22] MEDS ORDERED: MULTIVITAMIN TAB PO SCH (09:00)
--- NOTE | 2019-04-22 09:05 | Surgery Progress Note ---
Date of Service April 22, 2019 Assessment & Plan (1) S/P panniculectomy: POD #1 s/p Panniculectomy. Jessica is doing well. Pain is controlled. Mild nausea following surgery has resolved. Tolerating regular diet without issue. Surgical drains to remain in place at discharge. Care reviewed with patient. Surgical dressings to remain in place. She is aware that she is to keep dressings dry. Patient to follow-up in our office tomorrow. Discharge instructions reviewed with patient. All questions answered. Subjective Jessica is doing well this morning. She states that her nausea that she had in the immediate post-operative period has resolved. She reports that her pain is well-controlled. Her catheter has been removed. She has been ambulating in her room without issue. Physical Exam Physical Exam: On physical exam- Pt's HOB elevated surgical binder in place, RICO drains x [address] with bloody drainage. Surgical dressings in place- they are clean, dry, intact. Results & Data Vital Signs (Past 12 Hours) Vital Signs Temp Pulse Resp BP Pulse Ox 04/22/19 07:33 36.8 C 77 16 112/70 93 04/22/19 03:58 36.8 C 78 16 100/62 93 04/21/19 22:55 36.7 C 92 H 18 108/68 94 04/21/19 21:19 36.9 C 91 H 18 104/67 92 PG Care Time/CCT Total # of Minutes Spent Total Time Spent with Patient: Total time spent is greater than 50% in coordination of care (as documented) at patient's floor/unit and/or counseling patient:
--- NOTE | 2019-04-22 15:20 | Discharge Summary ---
Date of Service April 22, 2019 Admission HPI Per Admitting Provider Please see admission H & P. Admission Exam Per Admitting Provider Please see admission H & P. Principal Diagnosis Encounter for cosmetic surgery. Discharge Data Allergies Allergy/AdvReac Type Severity Reaction Status Date / Time No Known Allergies Allergy Mild Unverified 04/21/19 06:19 Procedures Performed Operation Date: 04/21/19 07:30 Actual Procedures p Panniculectomy(Not Applicable) - Xochilt Smith MD Hospital Course (1) S/P panniculectomy: Jessica is a 58-year-old female with abdominal pannus. She was taken to the OR and underwent Panniculectomy. There were no intraoperative complications. She was taken to recovery and transferred to med/surg for observation. She did experience some some nausea in the immediate post- operative period. On POD #1, she was feeling a bit sore, but overall she was doing well. Her post-operative nausea had resolved. Leon was sent to her pharmacy in case nausea returned while at home. She was tolerating a regular diet, voiding on her own, and ambulating without issue. On exam, her vitals were stable. Her abdominal binder in place- I was able to view her surgical dressings and they were clean, dry, intact. RICO drains, which were placed intraoperatively, remained at discharge. She was discharged home with instructions to follow-up in the office in 1 day. All questions answered. Total Time Total Time Spent Total Time Spent (In Minutes): 10 Discharge Plan Discharge Items Patient Disposition: Home - Self-Care Reason For Visit: Abdominal Pannus Discharge Diagnosis: Abdominal Pannus, status post Panniculectomy Activity: As commented below Non-emergency contact: Surgeon Call non-emergency contact if: you have any medication questions, your pain is not controlled, your temperature is above 101.5, your wound has increased redness and your wound has increased drainage Follow-up/Referrals: Philippe Fontana MD [Primary Care Provider] - Diet: Carb Consistent or DM2 Addtl Attending Provider Instructions: ACTIVITY RECOMMENDATIONS: __Normal activities _X_No bending, lifting or straining __No driving _X_Driving allowed when you are off pain medications _X_Walking permitted __You should have help at home for ___ days DRESSINGS: __No dressings required _X_Keep dressings dry/in place until first office visit __Remove dressings ___ and leave dressings off __Apply ice ___ days __Remove dressings and reapply garment __Apply antibiotic ointment (Bacitracin, Neosporin, etc) to wounds 3-4 times/day for 10 days BATHING: X__Keep dressings dry X_Sponge bathing permitted __Showering permitted _X_No swimming, hot tubs or soaking in a tub MEDICATIONS: Resume previous medications unless instructed otherwise by your surgeon. Ok to resume Aspirin therapy tomorrow, 04/23/2019. _X_Do not use Motrin, Advil or Ibuprofen as these may promote bleeding. Please use Tylenol. _X_Prescription(s) provided: Script for post-operative pain medication provided at last office visit. Prescription for Zofran sent to pharmacy. OTHER INSTRUCTIONS: _X_Record drain output 2-3 times per day SPECIAL CARE INSTRUCTIONS: * It is normal to have a mild fever after surgery. If your temperature is higher than 101.5 degrees F, please call the office at [phone]. * Constipation is a typical side effect of pain medication. An over -the-counter stool softener will help relieve this. * Leaking around surgical drains may occur and should not cause concern. Sometimes these drains become clogged. If this happens, remove the bulb and milk the clot out of the tube, then replace the bulb. * Drainage from wounds after liposuction is normal and should be expected. Garments will become soiled. You should protect furniture and bedding. This drainage should mostly subside within 2-3 days. Leave garments in place unless instructed to remove them. * If you have unusual drainage from a wound or are concerned you have an infection or have any questions or concerns, please call the office at [phone]. FOLLOW UP VISIT: If not already scheduled, please call the office, , when you return home after surgery to schedule an appointment to be seen in _1__ day. Pending Studies at Discharge: No Stand-Alone Forms: [employer], Smoking Cessation Medications and DC Order Prescriptions: New ondansetron HCl [Zofran] 4 mg tablet 4 mg PO Q6H PRN (Reason: nausea and vomiting) 3 Days Qty: 12 RF: 0 Continued aspirin 81 mg tablet,chewable 81 mg PO DAILY RF: 0 hydrochlorothiazide 50 mg tablet 50 mg PO QAM RF: 0 rosuvastatin 10 mg tablet 10 mg PO QAM Qty: 90 RF: 0 metformin 500 mg tablet 500 mg PO BID Qty: 180 RF: 0 bupropion HCl 150 mg tablet sustained-release 12 hr 150 mg PO BID RF: 0 multivitamin Capsule 1 cap PO DAILY RF: 0 cholecalciferol (vitamin D3) [Vitamin D3] 2,000 unit Tablet 2,000 unit PO DAILY RF: 0 Discharge Orders: Discharge Order (Routine); Ordered 04/22/19 Ordered By: Yecenia Mukherjee Admission Data Admit Date/Time: 04/21/19 10:15 Attending Provider: Xochilt Smith Admit Provider: Xochilt Smith Primary Care Provider: Philippe Fontana Other Providers: Patricia Berry Other Interventions: Discharge Summary Assessment (RN) Last Done: 04/22/19 09:07 DC Date/Time DO NOT enter until pt leaves facility: 04/22/19 09:34
== END 2019-04-22 09:34 | disposition home or self-care (01) ==
LOC: 3N 06:00 → ASU 06:00